=== PATIENT | male | born 1980 | race Two or more races ===

== ENCOUNTER 2022-11-03 12:00 | Outpatient (CLI) | payer OTHER | END 2022-11-03 23:59 | disposition home or self-care (01) | LOC: LAB 12:00 | PROVIDERS: ATTEND Specialist | DX: Z01.812 Encounter for preprocedural laboratory examination (principal); Z20.822 Contact with and (suspected) exposure to COVID-19 | CPT/HCPCS: U0003; C9803 ==

== ENCOUNTER 2022-11-08 05:37 | Day surgery (SDC) | payer OTHER ==
--- NOTE | 2022-11-08 06:20 | NUR ---
SOFTWARE APPLICATIONS ENGINEER NOTE PATIENT ARRIVED ON UNIT FOR ORIF OF LEFT 5TH METACARPAL FRACTURE. PATIENT STABLE ON RA, NO S/S OF DISTRESS OR SOB NOTED, BREATHING EVEN AND UNLABORED. PATIENT AMBULATORY WITH STEADY GAIT. ALL CONSENT FORMS SIGNED BY PATIENT. BELONGINGS DOCUMENTED. PATIENT NPO SINCE LAST NIGHT. IV ACCESS INSERTED ON LAC #18G. ORIENTED PATIENT TO ROOM AND HOW TO USE CALL LIGHT. SAFETY MEASURES IN PLACE: CALL LIGHT WITHIN REACH, SIDE RAILS UP X 2, BED LOCKED IN LOWEST POSITION. WILL ENDORSE TO DAYSHIFT RN FOR CONTINUITY OF CARE
--- NOTE | 2022-11-08 07:30 | NUR ---
RN MS NOTES PT IN BED, AWAKE, ALERT AND ORIENTED, DENIES PAIN AT THIS TIME, RESPIRATIONS NORMAL, CALL LIGHT WITHIN REACH, ALL CONSENTS SIGNED BY PT, CHECKLIST PREPARED BY ONLINE MARKETER NURSE, AWAITING O.R. THERAPIST.
[2022-11-08] MEDS ORDERED: BUPIVACAINE 0.25% 75 MG/30 ML VIAL ONE ×2 (07:57→08:05)
[2022-11-08] MEDS ORDERED: LIDOCAINE 1% INJ 50 ML MDV IJ ONE (07:58)
--- NOTE | 2022-11-08 08:00 | NUR ---
RN MS NOTES PT PICKED UP BY O.R. STAFF FOR SURGERY VIA BED, IN STABLE CONDITION.
[2022-11-08] MEDS ORDERED: FENTANYL PF 100MCG/2ML AMPUL ONE (08:04)
[2022-11-08] MEDS ORDERED: FAMOTIDINE/PF INJ 20 MG/2 ML VIAL IV ONE (08:04)
[2022-11-08 10:10] VITALS: BP 122/88
--- NOTE | 2022-11-08 10:10 | NUR ---
RN MS NOTES RECEIVED PT FROM Ricardo SOLER, BEDSIDE REPORT RECEIVED, PT IS AWAKE, ALERT AND ORIENTED, NO COMPLAINT OF PAIN AT THIS TIME, BREATHING PATTERN NORMAL, VITALS TAKEN AND RECORDED, POST OP ORDERS RECEIVED FROM MD, NOTED AND CARRIED OUT, DRESSING TO LEFT HAND INTACT AND CLEAN, NO BLEEDING NOTED, ELEVATED WITH PILLOWS, ICE APPLIED, WILL CONTINUE TO MONITOR.
[2022-11-08 10:30] VITALS: BP 138/83
[2022-11-08 11:00] VITALS: BP 131/90
[2022-11-08 11:30] VITALS: BP 147/56
[2022-11-08 12:00] VITALS: BP 144/77
--- NOTE | 2022-11-08 12:30 | NUR ---
RN MS NOTES PT AWAKE, ALERT AND ORIENTED, NO COMPLAINT OF PAIN, NOT IN DISTRESS, CALL LIGHT WITHIN REACH, DISCHAGRGE ORDER GIVEN BY DR. WADE, DISCHARGE AND MEDICATION INSTRUCTIONS PROVIDED TO PT, VERBALIZED UNDERSTANDING, BELONGINGS ACCOUNTED FOR, SLING PROVIDED TO KEEP LEFT ARM ELEVATED, ASSISTED TO HOSPITAL LOBBY, LEFT WITH FAMILY MEMBER IN STABLE CONDITION.
== END 2022-11-08 19:00 | disposition home or self-care (01) ==
LOC: DS 05:37 → MED 05:38 → UNDOADMIN 05:38 → MED 06:06 → UNDODISIN 13:54 → DS 19:00
PROVIDERS: ATTEND Specialist
DX: S62.317A Displaced fracture of base of fifth metacarpal bone, left hand, initial encounter for closed fracture (principal); Z20.822 Contact with and (suspected) exposure to COVID-19; X58.XXXA Exposure to other specified factors, initial encounter; Y93.89 Activity, other specified; Y92.89 Other specified places as the place of occurrence of the external cause; Y99.8 Other external cause status
CPT/HCPCS: 26615; 87081; J0690; J1100; J2704; J3010; J3490 ×6; J2765; J1885; J2405; A4565; A6402; A4217; C1713; G0378